=== PATIENT | male | born 1990 | race African-American/Black ===

== ENCOUNTER 2022-10-13 09:49 | Emergency (ER) | payer SELFPAY | END 2022-10-13 11:07 | disposition home or self-care (01) | LOC: ERS 09:49 | DX: J06.9 Acute upper respiratory infection, unspecified (principal); E03.9 Hypothyroidism, unspecified; Z79.899 Other long term (current) drug therapy | CPT/HCPCS: 99283 ==

== ENCOUNTER 2024-10-28 20:13 | Emergency (ER) | payer SELFPAY ==
[2024-10-28] MEDS ORDERED: Dexamethasone 10 MG/ML VIAL ONE (21:53)
== END 2024-10-28 22:02 | disposition home or self-care (01) ==
LOC: ERS 20:13
DX: J06.9 Acute upper respiratory infection, unspecified (principal); B97.89 Other viral agents as the cause of diseases classified elsewhere
CPT/HCPCS: 71046; 87428; J1100

== ENCOUNTER 2024-11-27 22:29 | Emergency (ER) | payer SELFPAY ==
[2024-11-27] MEDS ORDERED: Ondansetron ODT 4 MG TAB ONE (22:38)
[2024-11-27] MEDS ORDERED: Ibuprofen 800 MG TAB ONE (22:38)
== END 2024-11-27 23:08 | disposition home or self-care (01) ==
LOC: ERS 22:29
DX: J11.1 Influenza due to unidentified influenza virus with other respiratory manifestations (principal)
CPT/HCPCS: 87428; 99283; Q0162